=== PATIENT | female | born 1950 | race Caucasian/White ===

== ENCOUNTER 2016-09-08 03:45 | Inpatient (IN) ==
[2016-09-08] MEDS ORDERED: Ipratropium/Albuterol Neb 3 ML IH ONE (03:59)
[2016-09-08] MEDS ORDERED: methylPREDNISolone 125 MG/2 ML VIAL IVP ONE (04:03)
--- NOTE | 2016-09-08 04:06 | Emergency Department Note ---
Disposition Clinical Impression: Community acquired pneumonia, Acute exacerbation of chronic obstructive airways disease Disposition: Admitted As Inpatient Condition: Good Time of Disposition: 05:16 General Adult HPI - General Chief complaint: ED Shortness of Breath/Dyspnea Stated complaint: JONNY Time Seen by Provider: 09/08/16 03:54 Source: patient Mode of arrival: wheelchair Limitations: no limitations Nursing Notes Reviewed: Yes Vital Signs Reviewed: Yes - History of Present Illness HPI Narrative: Female patient complaining of shortness of breath for 1 day. Has tried nebulizers and albuterol inhalers with no relief. Does have a productive cough. Has been getting worse over the last 2 days. Has had 2 courses over the past 2 months of doxycycline and steroids. Last dose of steroids was 2 weeks ago. Pain Scale: 0 - Related Data Allergies Allergy/AdvReac Type Severity Reaction Status Date / Time Amoxicillin [From Augmentin] Allergy See Verified 09/08/16 03:50 Comments clavulanic acid Allergy See Verified 09/08/16 03:50 [From Augmentin] Comments Review of Systems: Subjective fevers as chills today. Increased shortness of breath with exacerbation today. Chest pain with cough. None at rest. Dyspnea on exertion. No rhinorrhea or sore throat. Productive cough with a yellow sputum. Patient denies abdominal pain nausea vomiting or diarrhea. Patient denies any swelling or edema in any of her extremities. Patient denies any headaches syncope or blurred vision. She reports illness of 3 months. All systems ED: reviewed and negative except as stated. Past Medical History - Past Medical History Attestation: Yes The following information was validated with the patient. Source: patient Medical history: Reports: hyperlipidemia, hypertension - Social History Smoking Status: Current every day smoker Smokeless Tobacco Status: No Alcohol use: Reports: rarely Drug use: Reports: none Physical Exam - General Limitations: no limitations General appearance: alert, in distress (In moderate respiratory distress. Patient is tripoding. She is tachypneic and tachycardic.) - Head Head exam: atraumatic, normocephalic, normal inspection - Eye Eye exam: Present: normal appearance, PERRL, EOMI - ENT ENT exam: normal exam, normal oropharynx, mucous membranes moist - Neck Neck exam: Present: normal inspection, full ROM, trachea midline. Absent: tenderness, meningismus - Chest Chest inspection: Present: normal inspection, symmetric chest wall rise - Respiratory Respiratory exam: Present: respiratory distress, wheezes (Diffusely.) - Cardiovascular Cardiovascular exam: Present: tachycardia, normal heart sounds - Abdominal Exam Abdominal exam: Present: soft, Non-Tender, normal bowel sounds. Absent: tenderness, distention, guarding, rebound, rigidity, organomegaly - Extremities Exam Extremities exam: Present: normal inspection, full ROM. Absent: tenderness, pedal edema - Back Exam Back exam: Present: normal inspection, full ROM. Absent: tenderness - Neurological Exam Neurological exam: Present: alert, oriented X3 - Psychiatric Psychiatric exam: Present: normal affect, normal mood - Skin Skin exam: Present: warm, dry, intact, normal color Course Course Narrative: Female patient reporting 2 month history of shortness of breath and cough. She is in moderate respiratory distress at this time. She states she has been on doxycycline as well as steroids twice. She states she has gotten slightly better however returns to her shortness of breath. Shortness of breath and cough got extremely bad yesterday. She has tried her albuterol inhaler as well as a friend's nebulizer with no relief. She reports subjective fevers. She does have a productive cough of a yellow sputum. She denies any history of COPD or asthma. She is a smoker. Patient has wheezing throughout and is tripoding in bed. We will order basic lab work as well as 3 duo nebs and chest x-ray. Patient is tachypneic and tachycardic. We will get an EKG. I do not believe patient has a pulmonary embolus. I believe her shortness of breath is due to her wheezing and possible pneumonia. She does report mild chest pain due to the cough. - Reevaluation(s) Reevaluation #1: Patient reassessed. Her lung sounds are slightly less wheezing. However she still is short of breath and does have mild wheezing throughout. Patient's chest x-ray was read as normal however I believe the patient has a left lower lobe pneumonia after reviewing her prior film. We will treat her with Rocephin while she is here. We are going to admit for failed outpatient therapy. Patient maintaining an oxygen saturation of 95% on 3 L. Patient does not use oxygen at home. Time: 04:37 - Consultations Consultation #1: Dr Umanzor admitted Pt in stable condition. Time: 05:09 Vital Signs Temperature 98.4 F 09/08/16 03:47 Pulse Rate 128 09/08/16 03:47 Respiratory Rate 24 09/08/16 03:47 Blood Pressure 169/110 09/08/16 03:47 O2 Sat by Pulse Oximetry 94 L 09/08/16 03:47 Temperature 98.4 F 09/08/16 03:47 Pulse Rate 126 09/08/16 06:07 Respiratory Rate 18 09/08/16 06:07 Blood Pressure 139/99 09/08/16 06:07 O2 Sat by Pulse Oximetry 97 09/08/16 06:07 Oxygen Delivery Oxygen Delivery Nasal Cannula Medical Decision Making - Medical Records Medical records reviewed: Yes I reviewed the patient's medical records. - Lab Data Lab results reviewed: Yes I reviewed the patient's lab results. Result diagrams: 09/08/16 04:05 09/08/16 04:05 Lab Results 09/08/16 09/08/16 09/08/16 Range/Units 04:05 04:05 04:05 WBC 16.3 H (4.3-11.1) K/mcL RBC 4.96 (3.82-4.97) M/mcL Hgb 15.4 (11.5-15.4) g/dL Hct 45.2 H (35.3-44.9) % MCV 91.1 (83.0-100.0) fL MCH 31.0 (28.0-33.3) pg MCHC 34.1 (31.6-35.5) g/dL RDW 13.3 (11.5-14.5) % Plt Count 377 (140-400) K/mcL MPV 9.8 (9.4-12.4) fL Immature Gran % 0.5 (0-4) % Seg Neutrophils % 71.0 % Lymphocytes % 15.2 % Monocytes % 5.8 % Eosinophils % 7.1 % Basophils % 0.4 % Neutrophils # 11.6 H (1.6-8.9) K/mcL Lymphocytes # 2.5 (0.6-4.6) K/mcL Monocytes # 0.9 (0.0-1.3) K/mcL Eosinophils # 1.2 H (0.0-0.6) K/mcL Basophils # 0.1 (0.0-0.2) K/mcL Sodium 141 (136-145) mEq/L Potassium 3.9 (3.5-4.5) mEq/L Chloride 104 (98-109) mEq/L Carbon Dioxide 27 (19-29) mEq/L BUN 7 (7-20) mg/dL Creatinine 0.65 (0.57-1.11) mg/dL Est GFR ( Amer) > 60 (> 60) Est GFR (Non-Af Amer) > 60 (> 60) BUN/Creatinine Ratio 11 (6-26) Glucose 147 H (70-99) mg/dL Calculated Osmolality 293 (280-300) Calcium 9.6 (8.6-10.8) mg/dL Troponin I 0.02 (0-0.03) ng/mL C-Reactive Protein 12 H (Less than 5) mg/L - Radiology Data Radiology results reviewed: Yes I reviewed the patient's radiology results. Left lower lobe pneumonia. When assessed with prior chest x-rays. It was read by the radiologist as no pneumonia. - EKG Data EKG #1 EKG attestation: Yes I reviewed and interpreted this EKG. EKG results narrative: Sinus tachycardia at a rate of 129. OK interval is 173. QRS duration is 79. QT is 299. QTC is 375. There are no signs of acute ischemia. She is significantly more tachycardic than her previous EKG dated 02/10/2013. Attestation Statement - Attestation Attestation: For this encounter, I have reviewed the resident, SAND SLINGER OPERATOR, or PA documentation, treatment plan, and medical decision making; and I have had face to face time with this patient. 65-year-old female presents with respiratory distress. Patient states that she has been treated multiple times over the past 2 months for similar symptoms. She states that she has been treated with doxycycline twice as well as 2 courses of steroids. She states that she improves while taking the medications but then relapses and has continued difficulty breathing. Physical examination the patient has severe wheezing in the bilateral posterior lung melvin and is in mild respiratory distress. Patient improved after administration of DuoNeb and steroids emergency department. She is now satting 96% on 3 L. Laboratory evaluation reveals leukocytosis. Patient has not taken steroids in the past 2 weeks. Initial chest x-ray reveals possible infiltrate in the left lower lobe. Patient will be admitted to the hospital and started on antibiotics for further care and evaluation of community acquired pneumonia as well as acute exacerbation of COPD.
[2016-09-08] MEDS ORDERED: 0.9 % Sodium Chloride 1,000 ML IVC STA (04:08)
[2016-09-08] MEDS ORDERED: 0.9 % Sodium Chloride 1,000 ML ONE (04:09)
[2016-09-08 04:11] LABS: Basophils # 0.1 K/mcL (0.0-0.2); Basophils % 0.4 %; Eosinophils # 1.2 K/mcL (0.0-0.6); Eosinophils % 7.1 %; Hematocrit 45.2 % (35.3-44.9); Hemoglobin 15.4 g/dL (11.5-15.4); Immature Granulocytes % 0.5 % (0-4); Lymphocytes # 2.5 K/mcL (0.6-4.6); Lymphocytes % 15.2 %; Mean Corpuscular HGB Conc 34.1 g/dL (31.6-35.5); Mean Corpuscular Volume 91.1 fL (83.0-100.0); Mean Platelet Volume 9.8 fL (9.4-12.4); Monocytes # 0.9 K/mcL (0.0-1.3); Monocytes % 5.8 %; Neutrophils # 11.6 K/mcL (1.6-8.9); Platelet Count 377 K/mcL (140-400); Red Blood Count 4.96 M/mcL (3.82-4.97); Red Cell Distribution Width 13.3 % (11.5-14.5)
[2016-09-08 04:26] LABS: BUN/Creatinine Ratio 11 (6-26); Blood Urea Nitrogen 7 mg/dL (7-20); Calcium 9.6 mg/dL (8.6-10.8); Carbon Dioxide 27 mEq/L (19-29); Chloride 104 mEq/L (98-109); Glucose 147 mg/dL (70-99); Osmolality,Calculated 293 (280-300); Potassium 3.9 mEq/L (3.5-4.5); Sodium 141 mEq/L (136-145); eGFR For African Americans > 60 (> 60); eGFR For Non-African Americans > 60 (> 60)
[2016-09-08 05:24] LABS: C-Reactive Protein 12 mg/L (Less than 5)
[2016-09-08] MEDS ORDERED: Azithromycin 500 MG in D5% in Water 250 ML IVPB ONE (06:14)
--- NOTE | 2016-09-08 09:21 | Internal Med History&Physical ---
Addendum entered and electronically signed by Kristian Ferreira DO 10:33: she will likely need outpatient f/u of her bronchitis which maybe becoming chronic bronchitis. she may need PFTs for evaluation. Original Note: <JhonKristian Evelio Mcgregor - Last Filed: 09/08/16 10:26> Date of Encounter: 09/08/16 Time of Encounter: 09:21 Assessment and Plan (1) Sepsis Current visit: Yes Status: Acute 2/2 to her upper respiratory tract infection tachycardia in 130s and wbc 16 on admission she has improved somewhat with ceftriaxone/azithromycin 1L bolus in ED, solumedrol and duonebs obtain resp culture will cont abx, solumedrol, duonebs and oxygen support as needed, IVF Qualifiers: Qualified Code(s): A41.9 - Sepsis, unspecified organism (2) Bronchitis Current visit: Yes Status: Acute chronic producitve cough for the past 2-3 months, this is likely beginning of chronic bronchitis for her will keep monitoring smoking cessation as below (3) Hypertension Current visit: Yes Status: Acute restart home metoprolol with holding parameters, as well as hctz cont aspirin Qualifiers: Qualified Code(s): I10 - Essential (primary) hypertension (4) History of smoking Current visit: Yes Status: Acute counseled on smoking cessation (5) DVT prophylaxis Current visit: Yes Status: Acute Heparin SQ BID, encouraging early ambulation Internal Medicine - H&P: HPI Chief complaint: shortness of breath Admitted From: Emergency Dept Plans for Post Hospital Care: Home History of present illness: Ms. Allen is a 65 year old female with pmhx of htn/hld and 40 year history of smoking of which now she smokes roughly 4-5cigarettes/day. Patient has had bronchitis/respiratory infection in the past 2 months, twice, each time treated with doxycycline and steroids from here at the ED. She has been fever and pleuritis free for the past month since she finished her treatment, but it has returned. 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 She tried her inhaler, but it did not help, her friend brought breathing treatment machine over, but that did not help. She began having subjective fevers, and productive cough with worsening yellow/darker sputum. The patient felt ill and needed to come to the ED here. She also has pleuritic pain with deep inspiration, but is worse w cough which radiates to her back in multiple locations, this is the same radiating pain she's had in the past with her uri/bronchitis. She did not have shooting pains to the arm from her chest, no numbness tingling , no associated diaphoresis, no nausea/vomiting. Her shorntess of breath/chest pressure resolved when she got to the ED here and was started on treatment. Past Med Surg Social Fam HX - Past Medical History Medical history: hyperlipidemia, hypertension Psychiatric history: no psych history - Past Surgical History Surgical History: other - Social History Smoking Status: Current every day smoker Packs per day: 1/4 Smokeless Tobacco Status: No Alcohol use: rarely Drug use: none - Family History Mother Living Status: Hx Family Cancer: Yes (Cervical Cancer) Father Living Status: Hx Family Cardiac Disorders: Yes Internal Medicine - H&P: Meds Aspirin 81 mg PO DAILY 09/08/16 [History] Hydrochlorothiazide 25 mg PO DAILY 09/08/16 [History] Loratadine [Allergy Relief] 10 mg PO DAILY 09/08/16 [History] Metoprolol XL (24 HR) Succ [Toprol XL] 25 mg PO DAILY 09/08/16 [History] Allergies Amoxicillin [From Augmentin] Allergy (Verified 09/08/16 03:50) See Comments clavulanic acid [From Augmentin] Allergy (Verified 09/08/16 03:50) See Comments All Systems PM: A 10-system review of systems was performed and is negative for pertinent findings except as documented above in the HPI. - Constitutional Constitutional: chills, fatigue, fever(s), no excessive sweating - EENT Eyes: no change in vision, no discharge, no pain, no photophobia Ears: no ear discharge, no ear pain, no tinnitus Nose, mouth and throat: no dysphagia, no nasal discharge, no neck pain, no sore throat - Cardiovascular Cardiovascular ROS IM: chest pain, dyspnea, no lightheadedness, no palpitations , no syncope - Respiratory Respiratory: cough, dyspnea, wheezing, excessive phlegm production, change in phlegm color - Gastrointestinal Gastrointestinal: no abdominal pain, no diarrhea, no hematemesis, no hematochezia, no melena, no nausea, no vomiting - Genitourinary Genitourinary: no change in urinary stream, no dysuria, no flank pain, no hematuria - Musculoskeletal Musculoskeletal ROS IM: no numbness, no tingling - Integumentary Integumentary IM: no rash, no unusual bruising - Neurological Neurological ROS: no confusion, no convulsions, no focal weakness, no numbness, no tingling, no tremor(s) - Hematologic/Lymphatic Hematologic/Lymphatic: no easy bruising - Constitutional Vitals: Temp Pulse Resp BP Pulse Ox 98.1 F 120 19 138/80 96 09/08/16 07:45 09/08/16 07:45 09/08/16 07:45 09/08/16 07:45 09/08/16 07:45 - Head Head exam: Present: atraumatic, normocephalic - Eye Eye exam: Present: PERRL, conjuntiva pink, sclera anicteric Pupils: Present: PERRL - Neck Neck exam general surgery: Present: supple, trachea midline. Absent: lymphadenopathy - Respiratory Respiratory exam: Present: prolonged expiratory phase (slight prolongation), wheezes. Absent: respiratory distress, rhonchi - Cardiovascular Cardiovascular exam: Present: +S1, +S2 Additional comments: tachycardic - GI/Abdominal GI/Abdominal exam: Present: normal bowel sounds, soft, no peritoneal signs. Absent: distended, tenderness - Extremities Exam Extremities exam: Present: warm, radial pulses palpable and symetrical. Absent : calf tenderness, cyanotic, pedal edema - Neurological Exam Neurological exam: Present: CN II-XII intact, oriented X3, no focal deficits. Absent: facial droop, speech deficit - Skin Skin exam: Present: dry, intact Internal Med - H&P Results - Labs CBC & Chem 7: 09/08/16 04:05 09/08/16 04:05 <Blaire London - Last Filed: 09/08/16 11:26> Date of Encounter: 09/08/16 Internal Medicine - H&P: HPI History of present illness: Ms. Allen is a 65 year old female All Systems PM: A 10-system review of systems was performed and is negative for pertinent findings except as documented above in the HPI. - Constitutional Vitals: Temp Pulse Resp BP Pulse Ox 97.7 F 114 16 134/75 94 L 09/08/16 11:07 09/08/16 11:07 09/08/16 11:07 09/08/16 11:07 09/08/16 11:07 Internal Med - H&P Results - Labs CBC & Chem 7: 09/08/16 04:05 09/08/16 04:05
[2016-09-08] MEDS ORDERED: Naloxone 0.4 MG/ML INJ IVP PRN ×2 (09:55→10:08)
[2016-09-08] MEDS ORDERED: Acetaminophen 325 MG TABLET PO PRN (10:08)
[2016-09-08] MEDS ORDERED: Ondansetron 4 MG/2 ML VIAL IVP PRN (10:08)
[2016-09-08] MEDS ORDERED: Levofloxacin 500 MG/100 ML 500 MG/100 ML BAG IVPB ONE (10:15)
[2016-09-08] MEDS: MethylPREDNISolone 40 MG/ML VIAL IVP SCH ×3 (11:07→23:31)
[2016-09-08] MEDS: Ipratropium/Albuterol Neb 3 ML IH SCH ×3 (11:24→22:58)
[2016-09-08] MEDS: Levofloxacin 500 MG/100 ML 500 MG/100 ML BAG IVPB SCH (11:57)
[2016-09-08] MEDS: 0.9 % Sodium Chloride 1,000 ML IVC SCH (11:57)
[2016-09-08 12:50] LABS: Hemoglobin A1C 5.5 %
[2016-09-08] MEDS: hydroCHLOROthiazide 25 MG TABLET PO SCH (14:05)
[2016-09-08] MEDS: Aspirin 81 MG TAB.CHEW PO SCH (14:05)
[2016-09-08] MEDS: Metoprolol XL (24 HR) Succ 25 MG TAB.ER.24H PO SCH (14:05)
--- NOTE | 2016-09-08 14:36 | Electrocardiograph Report ---
[facility] Test Date: 2016-09-08 Pat Name: Josiane Allen Department: 103 Room: [facility] Gender: F Sort Operations Supervisor: EC : 1950 Requested By: Annabelle Kohler Order Number: [id number] Reading MD: Pal Solano Measurements Intervals [place] Rate: 129 P: 73 NM: 173 QRS: 63 QRSD: 79 T: 57 QT: 299 QTc: 375 Interpretive Statements SINUS TACHYCARDIA SEPTAL MYOCARDIAL INFARCTION, PROBABLY OLD Electronically Signed On 09-08-16 14:35:24 EST by Pal Solano
[2016-09-08] MEDS: Nicotine 7 MG PATCH.TD24 TD SCH (15:40)
[2016-09-08] MEDS: *HR* Heparin 5,000 UNIT/ML VIAL SQ SCH (17:42)
[2016-09-08] MEDS: Budesonide/Formoterol 80/4.5 MDI IH SCH (22:58)
[2016-09-09] MEDS: 0.9 % Sodium Chloride 1,000 ML IVC SCH (02:05)
[2016-09-09] MEDS: Ipratropium/Albuterol Neb 3 ML IH SCH ×4 (03:56→20:53)
[2016-09-09] MEDS: *HR* Heparin 5,000 UNIT/ML VIAL SQ SCH ×2 (05:29→16:23)
[2016-09-09] MEDS: MethylPREDNISolone 40 MG/ML VIAL IVP SCH (05:29)
[2016-09-09 06:41] LABS: Basophils % 0.1 %; Hematocrit 40.4 % (35.3-44.9); Immature Granulocytes % 0.8 % (0-4); Lymphocytes # 2.2 K/mcL (0.6-4.6); Lymphocytes % 10.8 %; Mean Corpuscular HGB Conc 33.7 g/dL (31.6-35.5); Mean Corpuscular Hemoglobin 31.2 pg (28.0-33.3); Mean Corpuscular Volume 92.7 fL (83.0-100.0); Mean Platelet Volume 10.3 fL (9.4-12.4); Monocytes # 0.7 K/mcL (0.0-1.3); Monocytes % 3.3 %; Platelet Count 360 K/mcL (140-400); Red Blood Count 4.36 M/mcL (3.82-4.97); Red Cell Distribution Width 13.9 % (11.5-14.5)
[2016-09-09 06:49] LABS: Hemoglobin 13.6 g/dL (11.5-15.4)
[2016-09-09 06:59] LABS: BUN/Creatinine Ratio 16 (6-26); Blood Urea Nitrogen 10 mg/dL (7-20); Calcium 9.1 mg/dL (8.6-10.8); Carbon Dioxide 27 mEq/L (19-29); Chloride 103 mEq/L (98-109); Glucose 151 mg/dL (70-99); Osmolality,Calculated 292 (280-300); Potassium 3.2 mEq/L (3.5-4.5); Sodium 140 mEq/L (136-145); eGFR For African Americans > 60 (> 60); eGFR For Non-African Americans > 60 (> 60)
[2016-09-09] MEDS: Metoprolol XL (24 HR) Succ 25 MG TAB.ER.24H PO SCH (08:41)
[2016-09-09] MEDS: Nicotine 7 MG PATCH.TD24 TD SCH (08:41)
[2016-09-09] MEDS: hydroCHLOROthiazide 25 MG TABLET PO SCH (08:41)
[2016-09-09] MEDS: Aspirin 81 MG TAB.CHEW PO SCH (08:41)
[2016-09-09] MEDS ORDERED: Potassium Chloride Elixir 20 MEQ/15 ML UDC PO ONE (08:58)
--- NOTE | 2016-09-09 10:23 | Internal Med Progress Note ---
<Megan Cardona - Last Filed: 09/09/16 17:02> Date of Encounter: 09/09/16 Time of Encounter: 09:00 - Assessment and plan (1) Sepsis Current Visit: Yes Status: Acute Assessment and plan: Evidenced on admission with tachycardia, leukocytosis, suspected pulmonary source. 09/08/16 CXR suspected Left-sided infiltrate Likely 2* bacterial community-acquired pneumonia Clinically improved. Lactic acid was not collected on admission, patient is doing well and hemodynamically stable, would not alter management at this juncture. 09/08/16 1 dose Rocephin/Azithromycin 09/09/16 Levaquin monotherapy. Qualifiers: Qualified Code(s): A41.9 - Sepsis, unspecified organism (2) Community acquired pneumonia Current Visit: Yes Status: Acute Assessment and plan: Evidenced on CXR with left-sided infiltrate, leukocytosis, cough with sputum production. Treatment per above. (3) History of smoking Current Visit: Yes Status: Acute Assessment and plan: Counseled on smoking cessation, agreeable to NRT She reports that she quit on Sep 06 2016 on the new year. Encouraged her efforts. (4) DVT prophylaxis Current Visit: Yes Status: Acute Assessment and plan: Hep 5000 U SC BID - Subjective Interval history: Patient seen/eval, she is sitting up, on 2LNC, not on LTOT. She endorses improvement in cough and breathing. No pleurisy, fever, chills, nvd. - Constitutional Vitals: Temp Pulse Resp BP Pulse Ox 98.0 F 95 18 137/86 94 L 09/09/16 07:12 09/09/16 07:12 09/09/16 07:12 09/09/16 07:12 09/09/16 07:12 General appearance: Present: A&O X 3, pleasant, obese - Head Head exam: Present: atraumatic, normocephalic - Eye Eye exam: Present: EOMI, sclera anicteric - ENT ENT exam: Present: mucous membranes moist - Neck Neck exam general surgery: Present: supple, trachea midline - Respiratory Respiratory exam: Present: prolonged expiratory phase, rhonchi (diffuse end exp ronchi all melvin, with wheeze. No crackles). Absent: accessory muscle use, rales - Cardiovascular Cardiovascular exam: Present: +S1, +S2. Absent: JVD - GI/Abdominal GI/Abdominal exam: Present: soft, no peritoneal signs. Absent: tenderness - Extremities Exam Extremities exam: Present: warm, radial pulses palpable and symetrical. Absent : pedal edema - Neurological Exam Neurological exam: Absent: facial droop, speech deficit Internal Medicine: Result - Labs CBC & Chem 7: 09/09/16 05:54 09/09/16 05:54 Labs: Short CBC 09/09/16 Range/Units 05:54 WBC 20.0 H (4.3-11.1) K/mcL Hgb 13.6 D (11.5-15.4) g/dL Hct 40.4 (35.3-44.9) % Plt Count 360 (140-400) K/mcL Neutrophils # 17.0 H (1.6-8.9) K/mcL BMP 09/09/16 05:54 Sodium 140 Potassium 3.2 L Chloride 103 Carbon Dioxide 27 BUN 10 Creatinine 0.62 Glucose 151 H Calcium 9.1 Consult Discharge Plan - Plan Referrals: Josie Lopez, HYDRANT SETTER [Primary Care Provider] - <Nigel Sanchez - Last Filed: 09/09/16 18:13> Date of Encounter: 09/09/16 - Constitutional Vitals: Temp Pulse Resp BP Pulse Ox 98.3 F 92 16 142/80 94 L 09/09/16 16:04 09/09/16 16:04 09/09/16 16:04 09/09/16 16:04 09/09/16 16:04 Internal Medicine: Result - Labs CBC & Chem 7: 09/09/16 05:54 09/09/16 05:54 Labs: Short CBC 09/09/16 Range/Units 05:54 WBC 20.0 H (4.3-11.1) K/mcL Hgb 13.6 D (11.5-15.4) g/dL Hct 40.4 (35.3-44.9) % Plt Count 360 (140-400) K/mcL Neutrophils # 17.0 H (1.6-8.9) K/mcL BMP 09/09/16 05:54 Sodium 140 Potassium 3.2 L Chloride 103 Carbon Dioxide 27 BUN 10 Creatinine 0.62 Glucose 151 H Calcium 9.1 - Attending Attestation I examined this patient and my medical decision-making was reviewed with the BODY REPAIRER/PA/Advanced Practice Nurse/Resident Physician. I agree with the documented findings, disposition and treatment plan as described except to the extent set forth below. COPD exacerbation, correct potassium, monitor levels and obtain magnesium.
[2016-09-09] MEDS: Levofloxacin 500 MG/100 ML 500 MG/100 ML BAG IVPB SCH (11:21)
[2016-09-09] MEDS: Budesonide/Formoterol 80/4.5 MDI IH SCH ×2 (11:38→20:53)
[2016-09-09] MEDS ORDERED: methylPREDNISolone 125 MG/2 ML VIAL IVP ONE (18:00)
[2016-09-10] MEDS: Ipratropium/Albuterol Neb 3 ML IH SCH ×3 (04:07→16:51)
[2016-09-10 04:09] LABS: Basophils % 0.2 %; Hemoglobin 13.1 g/dL (11.5-15.4); Immature Granulocytes % 0.8 % (0-4); Lymphocytes # 2.4 K/mcL (0.6-4.6); Lymphocytes % 11.6 %; Mean Corpuscular HGB Conc 33.6 g/dL (31.6-35.5); Mean Corpuscular Hemoglobin 30.9 pg (28.0-33.3); Mean Platelet Volume 9.9 fL (9.4-12.4); Monocytes # 1.2 K/mcL (0.0-1.3); Neutrophils # 16.8 K/mcL (1.6-8.9); Platelet Count 347 K/mcL (140-400); Red Blood Count 4.24 M/mcL (3.82-4.97); Segmented Neutrophils % 81.4 %
[2016-09-10 04:21] LABS: BUN/Creatinine Ratio 20 (6-26); Blood Urea Nitrogen 13 mg/dL (7-20); Calcium 9.1 mg/dL (8.6-10.8); Carbon Dioxide 29 mEq/L (19-29); Chloride 105 mEq/L (98-109); Glucose 143 mg/dL (70-99); Osmolality,Calculated 291 (280-300); Sodium 139 mEq/L (136-145); eGFR For African Americans > 60 (> 60); eGFR For Non-African Americans > 60 (> 60)
[2016-09-10 04:22] LABS: Potassium 4.5 mEq/L (3.5-4.5)
[2016-09-10] MEDS: *HR* Heparin 5,000 UNIT/ML VIAL SQ SCH (05:21)
[2016-09-10] MEDS ORDERED: predniSONE 20 MG TABLET PO SCH (09:00)
[2016-09-10] MEDS: Aspirin 81 MG TAB.CHEW PO SCH (09:37)
[2016-09-10] MEDS: Nicotine 7 MG PATCH.TD24 TD SCH (09:38)
[2016-09-10] MEDS: hydroCHLOROthiazide 25 MG TABLET PO SCH (09:38)
[2016-09-10] MEDS: Metoprolol XL (24 HR) Succ 25 MG TAB.ER.24H PO SCH (09:39)
[2016-09-10] MEDS: Budesonide/Formoterol 80/4.5 MDI IH SCH (09:54)
[2016-09-10] MEDS: Levofloxacin 500 MG/100 ML 500 MG/100 ML BAG IVPB SCH (10:50)
--- NOTE | 2016-09-10 13:07 | Discharge Summary ---
<Megan Cardona - Last Filed: 09/10/16 14:55> Date of Encounter: 09/10/16 Time of Encounter: 11:20 - Discharge Diagnosis (1) Sepsis Priority: Primary Status: Acute Qualifiers: Sepsis type: sepsis due to unspecified organism Qualified Code(s): A41.9 - Sepsis, unspecified organism (2) Community acquired pneumonia Priority: Primary Status: Acute (3) History of smoking Priority: Secondary Status: Chronic (4) DVT prophylaxis Priority: Primary Status: Acute - Discharge Medications Prescriptions: Budesonide/Formoterol 80/4.5 [Symbicort 80/4.5] 2 puff IH BIDR #1 inhaler Levofloxacin [Levaquin] 750 mg PO QDPC #3 tablet Nicotine Patch [Nicoderm] 7 mg TD DAILY #30 patch.td24 PredniSONE 40 mg PO DAILY #6 tablet Home Medications: Aspirin 81 mg PO DAILY 09/08/16 [History] Hydrochlorothiazide 25 mg PO DAILY 09/08/16 [History] Loratadine [Allergy Relief] 10 mg PO DAILY 09/08/16 [History] Metoprolol XL (24 HR) Succ [Toprol Xl] 25 mg PO DAILY 09/08/16 [History] Budesonide/Formoterol 80/4.5 [Symbicort 80/4.5] 2 puff IH BIDR #1 inhaler 09/10 [Rx] Levofloxacin [Levaquin] 750 mg PO QDPC #3 tablet 09/10/16 [Rx] Nicotine Patch [Nicoderm] 7 mg TD DAILY #30 patch.td24 09/10/16 [Rx] PredniSONE 40 mg PO DAILY #6 tablet 09/10/16 [Rx] Allergies/Adverse Reactions: Allergies Amoxicillin [From Augmentin] Allergy (Verified 09/08/16 03:50) See Comments clavulanic acid [From Augmentin] Allergy (Verified 09/08/16 03:50) See Comments Date of admission: 09/08/16 11:17 Primary care physician: Josie Lopez CNP Consults: 09/10/16 10:29 Consult to Pack Mule Worker [CONS] Routine Reason for SW Consult: Anticipate need for oxygen on dc Discharging clinician: Nigel Sanchez Anticipated date of discharge: 09/10/16 - Patient Status Disposition: Home, Self-Care Condition: Good Functional capacity at discharge: independent ambulation Overall status at discharge: patient is progressing back to baseline - Discharge Instructions Instructions: How to Stop Smoking (DC), Chronic Obstructive Pulmonary Disease ( DC) Follow Up With: Josie Lpoez CNP [Primary Care Provider] - (Please call office [email or web address] for a follow-up appointment to be seen in one week ) Additional Instructions: Take all medications as prescribed, if symptoms worsen please return to the ED. While wearing a nicotine patch do not smoke, remember to remove old patch before replacing a new one. Alternate places when applying a new patch. - Diet and Activity Activity: increase activity as tolerated Diet: advance to your usual diet Hospital course: Ms. Allen is a 65 year old female with PMH HTN, HLD, 40 year history of smoking, presents on 09/08/16 with progressive dyspnea, sputum production. Her tachycardia and leukocytosis, along with CXR would be concerning for community acquired pneumonia with likely COPD exacerbation. Commenced empiric antibiotic levaquin. Sputum culture showed normal upper respiratory jc. Systemic steroids improved her COPD exacerbation, and was tapered down. The patient improved clinically and progressed towards baseline. She will go home on 3 more days of levaquin to finish course, prednisone 40mg PO QD for 3 more days. She was counseled on smoking cessation and she was agreeable to NRT, nicotine patch. Patient was advised to seek immediate medical attention for any new or worsening symptoms including but not limited to fever, chills, chest pain, pressure, dyspnea, abdominal pain, nvd, and she voiced understanding. She underwent 6-minute walk and did not require supplemental oxygen. She will follow-up with her DARIAN Lopez. Time spent discussing smoking cessation with patient: more than 10 minutes - Time Spent with Patient Total time spent providing and/or coordinating discharge services: Greater than 30 minutes - Constitutional Vitals: Temp Pulse Resp BP Pulse Ox 98.3 F 107 18 134/84 96 09/10/16 10:07 09/10/16 10:07 09/10/16 10:07 09/10/16 10:07 09/10/16 10:07 General appearance: Present: A&O X 3, pleasant, obese - Head Head exam: Present: atraumatic, normocephalic - Eye Eye exam: Present: EOMI, sclera anicteric - ENT ENT exam: Present: mucous membranes moist - Neck Neck exam general surgery: Present: supple, trachea midline - Respiratory Respiratory exam: Present: rhonchi (scant ronchi, no wheeze. No crackles) - Cardiovascular Cardiovascular exam: Present: +S1, +S2. Absent: JVD - GI/Abdominal GI/Abdominal exam: Present: no peritoneal signs. Absent: distended, tenderness - Extremities Exam Extremities exam: Present: warm, radial pulses palpable and symetrical. Absent : pedal edema - Neurological Exam Neurological exam: Absent: facial droop, speech deficit <Nigel Sanchez - Last Filed: 09/10/16 18:31> Date of Encounter: 09/10/16 Date of admission: 09/08/16 11:17 Primary care physician: Josie Lopez CNP Consults: 09/10/16 10:29 Consult to Pack Mule Worker [CONS] Routine Reason for SW Consult: Anticipate need for oxygen on dc Hospital course: Ms. Allen is a 65 year old female - Time Spent with Patient Total time spent providing and/or coordinating discharge services: - Constitutional Vitals: Temp Pulse Resp BP Pulse Ox 98.3 F 91 16 137/84 95 09/10/16 10:07 09/10/16 14:56 09/10/16 14:56 09/10/16 14:56 09/10/16 14:56 - Attending Attestation I examined this patient and my medical decision-making was reviewed with the COIL MACHINE SUPERVISOR/PA/Advanced Practice Nurse/Resident Physician. I agree with the documented findings, disposition and treatment plan as described except to the extent set forth below. COPD exacerbation, got better. continue with outpatient therapy.
[2016-09-10 14:57] VITALS: BP 137/84
== END 2016-09-10 16:30 | disposition home or self-care (01) | DRG 871 ==
LOC: EMEROO 03:45 → 3BNU 03:45 → SUATTDRO 06:07 → 3BNU 08:08 → 3NENU 12:26
PROVIDERS: ADMIT Internal Medicine Sleep Medicine; ATTEND Internal Medicine